=== PATIENT | male | born 1980 | race Caucasian/White ===

== ENCOUNTER 2016-07-16 07:32 | Emergency (ER) | payer SELFPAY ==
[~2016-07-16] VITALS: Ht 185.4 cm; Wt 117.9 kg
[2016-07-16] MEDS ORDERED: HYDROCODONE/APAP 5/325MG 1 EACH TABLET ONE (07:51)
[2016-07-16] MEDS ORDERED: HYDROCODONE/APAP 5/325MG 1 EACH TABLET PO ONE (08:00)
[2016-07-16 08:53] VITALS: BP 120/70
== END 2016-07-16 08:54 | disposition home or self-care (01) ==
LOC: ER 07:35
DX: S60.012A Contusion of left thumb without damage to nail, initial encounter (principal); W23.0XXA Caught, crushed, jammed, or pinched between moving objects, initial encounter; Y93.89 Activity, other specified; Y92.89 Other specified places as the place of occurrence of the external cause; Y99.9 Unspecified external cause status
CPT/HCPCS: 11740; 73140; 99284; A4606; Z7610